=== PATIENT | female | born 1985 | race American Indian/Alaskan Native ===

== ENCOUNTER 2016-12-20 08:48 | Emergency (ER) | payer BC ==
[2016-12-20 09:20] VITALS: BP 123/80
--- NOTE | 2016-12-20 10:57 | Emergency Department Report ---
Eye Injury/Foreign Body - HPI Duration: 2 weeks Eye Location: Bilateral Tetanus Status: Unknown Eye Symptoms: Eye Pain: Yes, Blurred Vision: Yes, Eye Redness: Yes, Grinding/ Hammering Metal: No, Used Eye Protection: No, Contact Lens Use: No, Recalls Injury: No (no injury/trauma), Photophobia: No Other History: 31 year old female presents to ED with bilateral eye pain/ redness x1week. patient denies trauma or loss of vision. patient states she has minimal purulent drainage from bilateral eyes. patient states she has been using [place] with no relief. patient is stable, neurologically intact and in no acute distress. ED Review of Systems ROS: Stated complaint: Eye Irritation Other details as noted in HPI Constitutional: denies: chills, fever Eyes: eye pain (bilateral), eye discharge, other (bilateral eye redness) ENT: denies: ear pain, throat pain Respiratory: denies: cough, shortness of breath, wheezing Cardiovascular: denies: chest pain, palpitations Endocrine: no symptoms reported Gastrointestinal: denies: abdominal pain, nausea, diarrhea Genitourinary: denies: urgency, dysuria, discharge Musculoskeletal: denies: back pain, joint swelling, arthralgia Skin: denies: rash, lesions Neurological: denies: headache, weakness, paresthesias Psychiatric: denies: anxiety, depression Hematological/Lymphatic: denies: easy bleeding, easy bruising ED Past Medical Hx - Past Medical History Previous Medical History?: Yes Additional medical history: vaginal delivery x 3 - Surgical History Past Surgical History?: No - Social History Smoking Status: Never Smoker Substance Use Type: Non Opiate Pain, Other - Medications Home Medications: Home Medications Medication Instructions Recorded Confirmed Last Taken Type Erythromycin [Erythromycin Ophth 10 applic OU TID #1 tube 12/20/16 Unknown Rx Oint] Polymyxin B Sulf/Trimethoprim 1 drop OU QID #1 bottle 12/20/16 Unknown Rx [Polytrim Eye Drops [id number]/0.1%] Eye Injury Exam - Exam General: Vital signs noted. No distress. Alert and acting appropriately. - Visual Acuity Bilateral Vision Acuity Degree: 20/25 (OU, OS, OD all 20/25) Eye Exam: Both Injection, Both EOMI (intact), Both Fluorescein Uptake (slit lamp ) (normal examination), Neither Chemosis, Neither Abnormal Pupil Exam: neurologically intact. alert and oriented x3 ED Course Vital Signs 12/20/16 09:16 Temperature 98.5 F Pulse Rate 89 Respiratory 18 Rate Blood Pressure 123/80 O2 Sat by Pulse 98 Oximetry ED Medical Decision Making - Medical Decision Making 31 year old female presents to ED with bilateral eye pain. patient will be given antibiotic drops and ointment for both eyes. patient is stable, neurologically intact and in no acute distress. normal slit lamp exam with tetracaine. Critical care attestation.: If time is entered above; I have spent that time in minutes in the direct care of this critically ill patient, excluding procedure time. ED Disposition Clinical Impression: Bacterial conjunctivitis of both eyes Disposition: DISCHARGED TO HOME OR SELFCARE Is pt being admited?: No Does the pt Need Aspirin: No Condition: Stable Instructions: Conjunctivitis (ED) Prescriptions: Erythromycin [Erythromycin Ophth Oint] 10 applic OU TID #1 tube Polymyxin B Sulf/Trimethoprim [Polytrim Eye Drops [id number]/0.1%] 1 drop OU QID #1 bottle Referrals: PRIMARY CARE, [Primary Care Provider] - 3-5 Days Forms: Work/School Release Form(ED)
[2016-12-20] MEDS ORDERED: FUL-GLO OP ONE ×2 (11:01→11:26)
[2016-12-20] MEDS ORDERED: TETRACAINE 0.5% OU ONE (11:01)
[2016-12-20] MEDS ORDERED: BSS ONE (11:27)
[2016-12-20] MEDS ORDERED: TETRACAINE 0.5% ONE (11:27)
== END 2016-12-20 12:05 | disposition home or self-care (01) ==
LOC: ED 08:48
DX: H10.89 Other conjunctivitis (principal)
CPT/HCPCS: 99283

== ENCOUNTER 2017-06-01 14:55 | Emergency (ER) | payer BC ==
[2017-06-01 15:09] VITALS: BP 141/85
--- NOTE | 2017-06-01 17:43 | Emergency Department Report ---
HPI - General Chief Complaint: Skin Rash Time Seen by Provider: 06/01/17 17:37 - HPI HPI: Patient is a 32-year-old female with no prior medical history presents to ED complaining of a "rising" on the back of her neck right by the back of her hairline times a month. Patient states states that initially when she first noticed a bump he felt like an insect bite but over the month it has gotten a bit bigger in size bigger and painful to touch. She denies seeing any insect bite her, she denies any recent trauma, fall, headache, fever, chills, bleeding. ED Past Medical Hx - Past Medical History Previous Medical History?: No Hx Hypertension: No Hx CVA: No Hx Heart Attack/AMI: No Hx Congestive Heart Failure: No Hx Diabetes: No Hx Deep Vein Thrombosis: No Hx Pulmonary Embolism: No Hx GERD: No Hx Liver Disease: No Hx Renal Disease: No Hx of Cancer: No Hx Sickle Cell Disease: No Hx Arthritis: No Hx Headaches / Migraines: No Hx Seizures: No Hx Kidney Stones: No Hx Psychiatric Treatment: No Hx Asthma: No Hx COPD: No Hx Tuberculosis: No Hx Dementia: No Hx HIV: No Additional medical history: vaginal delivery x 3 - Surgical History Past Surgical History?: No Hx Coronary Stent: No Hx Open Heart Surgery: No Hx Pacemaker: No Hx Internal Defibrillator: No Hx Cholecystectomy: No Hx Appendectomy: No Hx Breast Surgery: No - Social History Smoking Status: Current Every Day Smoker Substance Use Type: None - Medications Home Medications: Home Medications Medication Instructions Recorded Confirmed Last Taken Type Erythromycin [Erythromycin Ophth 10 applic OU TID #1 tube 12/20/16 Unknown Rx Oint] Polymyxin B Sulf/Trimethoprim 1 drop OU QID #1 bottle 12/20/16 Unknown Rx [Polytrim Eye Drops [id number]/0.1%] Cephalexin [Keflex] 500 mg PO BID #14 capsule 06/01/17 Unknown Rx Ibuprofen [Motrin] 600 mg PO Q8H PRN #30 tablet 06/01/17 Unknown Rx ED Review of Systems ROS: Stated complaint: NECK PAIN Other details as noted in HPI Constitutional: denies: chills, fever Eyes: denies: eye pain, eye discharge, vision change ENT: denies: ear pain, throat pain Respiratory: denies: cough, shortness of breath, wheezing Cardiovascular: denies: chest pain, palpitations Endocrine: no symptoms reported Gastrointestinal: denies: abdominal pain, nausea, diarrhea Genitourinary: denies: urgency, dysuria, discharge Musculoskeletal: denies: back pain, joint swelling, arthralgia Skin: denies: rash, lesions Neurological: denies: headache, weakness, paresthesias Psychiatric: denies: anxiety, depression Hematological/Lymphatic: denies: easy bleeding, easy bruising Physical Exam - Physical Exam Vital Signs: Vital Signs 06/01/17 15:02 Temperature 98.9 F Pulse Rate 89 Respiratory 16 Rate Blood Pressure 141/85 Blood Pressure 141/85 [Right] O2 Sat by Pulse 100 Oximetry Physical Exam: GENERAL: Alert and oriented x3, no apparent distress, Normal Gait, atraumatic. HEAD: Head is normocephalic and a-traumatic. NECK: Supple. Non edematous, No lymphadenopathy or thyromegaly. No C-spine tenderness, Small 1-2 cm, raised, mildly erythematous bump at the nape of the back of the neck, no swelling, no bleeding. Full range of motion of the neck LUNGS: Symetrical with respiration, No wheezing, no rales or crackles, CTAB. HEART: S1, S2 present, regular rate and rhythm without murmur, no rubs, no gallops. Non tender to palpation SKIN: Warm and dry, No lesions, No ulceration or induration present. ED Course Vital Signs 06/01/17 15:02 Temperature 98.9 F Pulse Rate 89 Respiratory 16 Rate Blood Pressure 141/85 Blood Pressure 141/85 [Right] O2 Sat by Pulse 100 Oximetry ED Medical Decision Making - Medical Decision Making 32-year-old female presents with cellulitis. ED course: I discussed with the patient to apply some warm compresses to the area of cellulitis. I discussed the patient should take some antibiotics for a week. Discussed to follow up with her primary care physician for reassessment. Discussed the patient's symptoms worsen or if new symptoms arise return to ED. Discussed the patient cellulitis does not necessarily mean an abscess. It could be an abscess but not fully formed. The medics lesion was was about 1- 2 cm in diameter, not fluctuant. Vital signs are normal patient is in no acute distress. Critical care attestation.: If time is entered above; I have spent that time in minutes in the direct care of this critically ill patient, excluding procedure time. ED Disposition Clinical Impression: Dermoid cyst of scalp Scalp contusion Qualifiers: Encounter type: initial encounter Qualified Code(s): S00.03XA - Contusion of scalp, initial encounter Disposition: TO HOME OR SELFCARE Is pt being admited?: No Does the pt Need Aspirin: No Condition: Stable Instructions: Abscess (ED), Scalp Contusion in Adults (ED) Prescriptions: Cephalexin [Keflex] 500 mg PO BID #14 capsule Ibuprofen [Motrin] 600 mg PO Q8H PRN #30 tablet PRN Reason: Pain Referrals: PRIMARY CARE, [Primary Care Provider] - 3-5 Days [facility] [Outside] - 3-5 Days [facility] [Outside] - 3-5 Days [facility] [Outside] - 3-5 Days Forms: Work/School Release Form(ED) Time of Disposition: 17:52
== END 2017-06-01 18:09 | disposition home or self-care (01) ==
LOC: ED 14:55
DX: S00.03XA Contusion of scalp, initial encounter (principal); D23.4 Other benign neoplasm of skin of scalp and neck; F17.200 Nicotine dependence, unspecified, uncomplicated; W57.XXXA Bitten or stung by nonvenomous insect and other nonvenomous arthropods, initial encounter; Y93.89 Activity, other specified; Y92.89 Other specified places as the place of occurrence of the external cause; Y99.8 Other external cause status
CPT/HCPCS: 99282